=== PATIENT | female | born 1950 | race Caucasian/White ===

== ENCOUNTER 2018-04-11 03:56 | Emergency (ER) | payer MEDICARE, OTHER ==
[~2018-04-11] VITALS: Ht 160 cm; Wt 56.7 kg
[~2018-04-11 03:56] MED LIST: ALBU3IS INH; ALBU90OI INH; ALBU90OI6 INH; Bactrim Ds Tab1 EACH PO; CEPH500 PO; Flovent Diskus50 MCG UD; METO50 PO; Mucinex600 MG PO; Norco 10-325 T1 EACH PO; PROP10 PO; Prednisone20 MG PO; QVAR7.3 G1 IH; SIMV10 PO; SIMV5 PO; THEO300ERA PO; Zithromax250 MG PO; Zofran Odt4 MG SL
[2018-04-11 04:51] LABS: BASOPHILS ABSOLUTE AUTO 0.11 K/mm3 (0.00-0.23); BASOPHILS PERCENT AUTO 1 % (0-2); EOSINOPHILS PERCENT AUTO 2 % (0-6); Hematocrit 46.9 % (33.0-51.0); Hemoglobin 15.3 g/dL (11.5-16.0); IMMATURE GRAN ABSOLUTE AUTO 0.02 K/mm3 (0.00-0.10); IMMATURE GRAN PERCENT AUTO 0 % (0-1); LYMPHOCYTES PERCENT AUTO 28 % (21-46); MONOCYTES ABSOLUTE AUTO 0.69 K/mm3 (0.16-1.47); MONOCYTES PERCENT AUTO 8 % (4-13); Mean Corpuscular HGB 31.4 pg (26.0-34.0); Mean Corpuscular HGB Conc 32.6 g/dL (31.5-36.5); Mean Corpuscular Volume 96 fL (80-100); Mean Platelet Volume 9.2 fL (9.1-12.4); NEUTROPHILS ABSOLUTE AUTO 5.02 K/mm3 (1.96-9.15); NEUTROPHILS PERCENT AUTO 60 % (41-73); Platelet Count 337 K/mm3 (150-400); RDW Coefficient Variation 13.2 % (11.7-14.2); RDW Standard Deviation 47.5 fL (35.1-46.3); Red Blood Cell Count 4.87 M/mm3 (3.80-5.20); White Blood Cell Count 8.44 K/mm3 (4.00-11.30)
[2018-04-11 05:05] LABS: Alanine Aminotransfer (ALT/SGP 17 U/L (12-78); Albumin, Blood 3.5 g/dL (3.4-5.0); Albumin/Globulin Ratio 0.9 (0.8-1.8); Alk Phos 80 U/L (50-136); Anion Gap 8 mmol/L (6-16); Aspartate Aminotrans (AST/SGOT 20 U/L (12-37); Bilirubin, Total 0.3 mg/dL (0.1-1.0); Blood Urea Nitrogen 20 mg/dL (8-24); Bun/Creatinine Ratio 29.6 (12.0-20.0); CO2, Blood 26 mmol/L (21-32); Calcium, Blood 8.9 mg/dL (8.5-10.1); Chloride, Blood 110 mmol/L (98-108); Creatinine, Blood 0.68 mg/dL (0.40-1.00); Globulin, Blood 3.9 g/dL (2.2-4.0); Glomerular Filtration Rate >60 (60-); Glucose, Blood 108 mg/dL (70-99); Potassium, Blood 4.7 mmol/L (3.5-5.5); Sodium, Blood 144 mmol/L (136-145); Total Protein, Blood 7.4 g/dL (6.4-8.2); Troponin I <0.015 ng/mL (0.000-0.040)
[2018-04-11] MEDS ORDERED: Prednisone20 MG PO (06:13)
== END 2018-04-11 06:28 | disposition home or self-care (01) ==
LOC: ER 03:56
PROVIDERS: Emergency Medicine
DX: J44.1 Chronic obstructive pulmonary disease with (acute) exacerbation (principal); F17.210 Nicotine dependence, cigarettes, uncomplicated; Z88.5 Allergy status to narcotic agent; Z79.899 Other long term (current) drug therapy; Z79.52 Long term (current) use of systemic steroids
CPT/HCPCS: 71046; 80053; 84484; 85025; 93005; 93010; 94644; 96374; 99284; J2930

== ENCOUNTER → 2018-06-15 | Outpatient (CLI) | payer MEDICARE, OTHER ==
[~2018-06-15] MED LIST changes: +Prednisone50 MG PO
[2018-06-21 09:11] LABS: HPV 16 Negative (Negative); HPV 18 Negative (Negative); HPV OTHER HR TYPES Negative (Negative)
== END | disposition home or self-care (01) ==
LOC: LAB 14:58 → LAB SHORT 14:58
PROVIDERS: Obstetrics & Gynecology
DX: Z09 Encounter for follow-up examination after completed treatment for conditions other than malignant neoplasm (principal); Z92.89 Personal history of other medical treatment; Z91.89 Other specified personal risk factors, not elsewhere classified
CPT/HCPCS: 87624; 88142

== ENCOUNTER 2018-07-19 03:04 | Emergency (ER) | payer MEDICARE, OTHER ==
[~2018-07-19] VITALS: Ht 172.7 cm; Wt 74.8 kg
[2018-07-19 03:19] LABS: BASOPHILS ABSOLUTE AUTO 0.13 K/mm3 (0.00-0.23); BASOPHILS PERCENT AUTO 1 % (0-2); EOSINOPHILS ABSOLUTE AUTO 0.19 K/mm3 (0.00-0.68); EOSINOPHILS PERCENT AUTO 2 % (0-6); Hematocrit 48.9 % (33.0-51.0); Hemoglobin 15.7 g/dL (11.5-16.0); IMMATURE GRAN ABSOLUTE AUTO 0.03 K/mm3 (0.00-0.10); IMMATURE GRAN PERCENT AUTO 0 % (0-1); LYMPHOCYTES ABSOLUTE AUTO 3.95 K/mm3 (0.84-5.20); LYMPHOCYTES PERCENT AUTO 36 % (21-46); MONOCYTES ABSOLUTE AUTO 0.81 K/mm3 (0.16-1.47); MONOCYTES PERCENT AUTO 7 % (4-13); Mean Corpuscular HGB 30.9 pg (26.0-34.0); Mean Corpuscular HGB Conc 32.1 g/dL (31.5-36.5); Mean Corpuscular Volume 96 fL (80-100); Mean Platelet Volume 8.8 fL (9.1-12.4); NEUTROPHILS ABSOLUTE AUTO 5.97 K/mm3 (1.96-9.15); NEUTROPHILS PERCENT AUTO 54 % (41-73); Platelet Count 477 K/mm3 (150-400); RDW Coefficient Variation 12.3 % (11.7-14.2); RDW Standard Deviation 44.1 fL (35.1-46.3); Red Blood Cell Count 5.08 M/mm3 (3.80-5.20); White Blood Cell Count 11.08 K/mm3 (4.00-11.30)
[2018-07-19 03:23] LABS: PCO2 Arterial 50.3 mmHg (35-45); PO2 Arterial 57.5 mmHg (80-100); pH Blood Arterial 7.38 (7.35-7.45)
[2018-07-19 03:41] LABS: Alanine Aminotransfer (ALT/SGP 12 U/L (12-78); Albumin, Blood 3.5 g/dL (3.4-5.0); Albumin/Globulin Ratio 0.8 (0.8-1.8); Alk Phos 80 U/L (50-136); Anion Gap 4 mmol/L (6-16); Aspartate Aminotrans (AST/SGOT 13 U/L (12-37); Bilirubin, Total 0.4 mg/dL (0.1-1.0); Blood Urea Nitrogen 12 mg/dL (8-24); Bun/Creatinine Ratio 19.7 (12.0-20.0); CO2, Blood 30 mmol/L (21-32); Calcium, Blood 9.3 mg/dL (8.5-10.1); Chloride, Blood 106 mmol/L (98-108); Creatinine, Blood 0.61 mg/dL (0.40-1.00); Globulin, Blood 4.2 g/dL (2.2-4.0); Glomerular Filtration Rate >60 (60-); Glucose, Blood 125 mg/dL (70-99); Potassium, Blood 4.6 mmol/L (3.5-5.5); Sodium, Blood 140 mmol/L (136-145); Total Protein, Blood 7.7 g/dL (6.4-8.2); Troponin I <0.015 ng/mL (0.000-0.040)
[2018-07-19] MEDS ORDERED: Prednisone20 MG PO (04:12)
== END 2018-07-19 05:10 | disposition home or self-care (01) ==
LOC: ER 03:04
PROVIDERS: Emergency Medicine
DX: J44.1 Chronic obstructive pulmonary disease with (acute) exacerbation (principal); Z88.5 Allergy status to narcotic agent; Z79.899 Other long term (current) drug therapy; Z79.51 Long term (current) use of inhaled steroids; Z79.52 Long term (current) use of systemic steroids; Z87.891 Personal history of nicotine dependence
CPT/HCPCS: 36415; 36600; 71045; 80053; 82803; 84484; 85025; 93005; 93010; 94644; 96365; 96375; 99285-25; J2405; J3475

== ENCOUNTER 2018-10-18 17:40 | Emergency (ER) | payer MEDICARE, OTHER ==
[~2018-10-18] VITALS: Ht 157.5 cm; Wt 65.8 kg
[2018-10-18] MEDS ORDERED: METOPROLOL TART75 MG PO (18:14)
[2018-10-18 18:15] LABS: BASOPHILS ABSOLUTE AUTO 0.07 K/mm3 (0.00-0.23); BASOPHILS PERCENT AUTO 1 % (0-2); EOSINOPHILS ABSOLUTE AUTO 0.19 K/mm3 (0.00-0.68); EOSINOPHILS PERCENT AUTO 3 % (0-6); Hematocrit 42.5 % (33.0-51.0); Hemoglobin 13.6 g/dL (11.5-16.0); IMMATURE GRAN ABSOLUTE AUTO 0.02 K/mm3 (0.00-0.10); IMMATURE GRAN PERCENT AUTO 0 % (0-1); LYMPHOCYTES ABSOLUTE AUTO 2.47 K/mm3 (0.84-5.20); LYMPHOCYTES PERCENT AUTO 32 % (21-46); MONOCYTES ABSOLUTE AUTO 0.55 K/mm3 (0.16-1.47); MONOCYTES PERCENT AUTO 7 % (4-13); Mean Corpuscular HGB 30.4 pg (26.0-34.0); Mean Corpuscular Volume 95 fL (80-100); NEUTROPHILS ABSOLUTE AUTO 4.37 K/mm3 (1.96-9.15); NEUTROPHILS PERCENT AUTO 57 % (41-73); Platelet Count 280 K/mm3 (150-400); RDW Coefficient Variation 12.6 % (11.7-14.2); RDW Standard Deviation 44.5 fL (35.1-46.3); Red Blood Cell Count 4.47 M/mm3 (3.80-5.20); White Blood Cell Count 7.67 K/mm3 (4.00-11.30)
[2018-10-18 18:36] LABS: Alanine Aminotransfer (ALT/SGP 12 U/L (12-78); Albumin, Blood 3.3 g/dL (3.4-5.0); Albumin/Globulin Ratio 0.9 (0.8-1.8); Alk Phos 62 U/L (50-136); Anion Gap 7 mmol/L (6-16); Aspartate Aminotrans (AST/SGOT 10 U/L (12-37); Bilirubin, Total 0.2 mg/dL (0.1-1.0); Blood Urea Nitrogen 25 mg/dL (8-24); Bun/Creatinine Ratio 41.6 (12.0-20.0); CO2, Blood 26 mmol/L (21-32); Calcium, Blood 9.4 mg/dL (8.5-10.1); Chloride, Blood 107 mmol/L (98-108); Globulin, Blood 3.6 g/dL (2.2-4.0); Glomerular Filtration Rate >60 (60-); Glucose, Blood 91 mg/dL (70-99); Sodium, Blood 140 mmol/L (136-145); Total Protein, Blood 6.9 g/dL (6.4-8.2); Troponin I <0.015 ng/mL (0.000-0.040)
[2018-10-18] MEDS ORDERED: PRED10 PO (18:58)
[2018-10-18] MEDS ORDERED: AZIT250 PO (18:58)
== END 2018-10-18 19:26 | disposition home or self-care (01) ==
LOC: ER 17:40
PROVIDERS: Emergency Medicine
DX: J44.1 Chronic obstructive pulmonary disease with (acute) exacerbation (principal); I47.1 Supraventricular tachycardia; Z87.891 Personal history of nicotine dependence
CPT/HCPCS: 36415; 71046; 80053; 84484; 85025; 93005; 93010; 94640; 96374; 99284-25; J2930

== ENCOUNTER 2019-11-13 21:59 | Emergency (ER) | payer MEDICARE, OTHER ==
[~2019-11-13] VITALS: Ht 160 cm; Wt 68.0 kg
[~2019-11-13 21:59] MED LIST changes: +AZIT250 PO; +METOPROLOL TART75 MG PO; +PRED10 PO
[2019-11-13] MEDS ORDERED: INCRUSE ELLI62.5 MCG (22:19)
[2019-11-13] MEDS ORDERED: BRIO (22:19)
[2019-11-13 22:47] LABS: BASOPHILS ABSOLUTE AUTO 0.05 K/mm3 (0.00-0.23); BASOPHILS PERCENT AUTO 1 % (0-2); EOSINOPHILS ABSOLUTE AUTO 0.15 K/mm3 (0.00-0.68); EOSINOPHILS PERCENT AUTO 2 % (0-6); Hematocrit 42.2 % (33.0-51.0); Hemoglobin 13.4 g/dL (11.5-16.0); IMMATURE GRAN ABSOLUTE AUTO 0.03 K/mm3 (0.00-0.10); IMMATURE GRAN PERCENT AUTO 0 % (0-1); LYMPHOCYTES ABSOLUTE AUTO 2.42 K/mm3 (0.84-5.20); LYMPHOCYTES PERCENT AUTO 29 % (21-46); MONOCYTES ABSOLUTE AUTO 0.78 K/mm3 (0.16-1.47); MONOCYTES PERCENT AUTO 9 % (4-13); Mean Corpuscular HGB 30.5 pg (26.0-34.0); Mean Corpuscular HGB Conc 31.8 g/dL (31.5-36.5); Mean Corpuscular Volume 96 fL (80-100); Mean Platelet Volume 9.5 fL (9.1-12.4); NEUTROPHILS ABSOLUTE AUTO 4.93 K/mm3 (1.96-9.15); NEUTROPHILS PERCENT AUTO 59 % (41-73); Platelet Count 295 K/mm3 (150-400); RDW Coefficient Variation 12.7 % (11.7-14.2); RDW Standard Deviation 45.3 fL (35.1-46.3); White Blood Cell Count 8.36 K/mm3 (4.00-11.30)
[2019-11-13 23:06] LABS: Alanine Aminotransfer (ALT/SGP 12 U/L (12-78); Albumin, Blood 3.5 g/dL (3.4-5.0); Alk Phos 57 U/L (50-136); Anion Gap 6 mmol/L (6-16); Aspartate Aminotrans (AST/SGOT 13 U/L (12-37); Bilirubin, Total 0.2 mg/dL (0.1-1.0); Blood Urea Nitrogen 18 mg/dL (8-24); Bun/Creatinine Ratio 35.2 (12.0-20.0); CO2, Blood 30 mmol/L (21-32); Calcium, Blood 9.6 mg/dL (8.5-10.1); Chloride, Blood 108 mmol/L (98-108); Creatinine, Blood 0.51 mg/dL (0.40-1.00); Globulin, Blood 3.5 g/dL (2.2-4.0); Glomerular Filtration Rate >60 (60-); Glucose, Blood 95 mg/dL (70-99); Potassium, Blood 3.9 mmol/L (3.5-5.5); Sodium, Blood 144 mmol/L (136-145); Troponin I <0.015 ng/mL (0.000-0.040)
[2019-11-14 00:26] LABS: PCO2 Arterial 47.9 mmHg (35-45); PO2 Arterial 70.7 mmHg (80-100); pH Blood Arterial 7.37 (7.35-7.45)
== END 2019-11-14 02:30 | disposition home or self-care (01) ==
LOC: ER 21:59
PROVIDERS: Emergency Medicine; Physician Assistant
DX: J44.1 Chronic obstructive pulmonary disease with (acute) exacerbation (principal); Z88.5 Allergy status to narcotic agent; Z79.899 Other long term (current) drug therapy; J44.9 Chronic obstructive pulmonary disease, unspecified; Z87.891 Personal history of nicotine dependence
CPT/HCPCS: 36415; 36600; 71046; 80053; 82803; 83880; 84484; 85025; 93005; 93010; 94640; 94644; 96361; 96374; 96375; 99284-25; J1885; J2930; J7030

== ENCOUNTER → 2020-06-18 | Outpatient (CLI) | payer MEDICARE, OTHER ==
[~2020-06-18] MED LIST changes: +BRIO; +INCRUSE ELLI62.5 MCG
[2020-06-19 14:08] LABS: HPV 16 Negative (Negative); HPV 18 Negative (Negative); HPV OTHER HR TYPES Negative (Negative)
== END | disposition home or self-care (01) ==
LOC: LAB 12:15 → LAB SHORT 12:15
PROVIDERS: Obstetrics & Gynecology
DX: Z01.419 Encounter for gynecological examination (general) (routine) without abnormal findings (principal)
CPT/HCPCS: 87624; G0123

== ENCOUNTER → 2021-01-15 | Outpatient (CLI) | payer MEDICARE, OTHER ==
[2021-01-15 18:44] LABS: Bilirubin, Urine Neg (Neg); Blood, Urine 1+ (Neg); Glucose Qualitative, Urine Neg (Neg); Ketones, Urine 1+ (Neg); Leukocyte Esterase, Urine 1+ (Neg); Nitrite, Urine Neg (Neg); Protein, Urine Neg (Neg); Urobilinogen, Urine NORM (Normal)
[2021-01-15 18:52] LABS: Appearance, Urine Clear (Clear); Color, Urine Pale Yellow (P-Yellow)
[2021-01-15 18:53] LABS: Red Blood Cells, Urine 0-2 /hpf (0-2); Squamous Epithelial Cells Few /hpf (Few)
[2021-01-15 18:54] LABS: Bacteria Few /hpf
== END ==
LOC: PLD 17:28 → LAB SHORT 17:28
PROVIDERS: Registered Nurse
DX: R10.9 Unspecified abdominal pain (principal); Z88.5 Allergy status to narcotic agent
CPT/HCPCS: 81001; 87086

== ENCOUNTER 2021-04-13 20:58 | Emergency (ER) | payer MEDICARE, OTHER ==
[~2021-04-13] VITALS: Ht 160 cm; Wt 72.6 kg
[2021-04-13 21:23] LABS: BASOPHILS ABSOLUTE AUTO 0.06 K/mm3 (0.00-0.23); BASOPHILS PERCENT AUTO 1 % (0-2); EOSINOPHILS ABSOLUTE AUTO 0.14 K/mm3 (0.00-0.68); EOSINOPHILS PERCENT AUTO 2 % (0-6); Hematocrit 45.6 % (33.0-51.0); Hemoglobin 14.8 g/dL (11.5-16.0); IMMATURE GRAN ABSOLUTE AUTO 0.02 K/mm3 (0.00-0.10); IMMATURE GRAN PERCENT AUTO 0 % (0-1); LYMPHOCYTES ABSOLUTE AUTO 2.84 K/mm3 (0.84-5.20); LYMPHOCYTES PERCENT AUTO 34 % (21-46); MONOCYTES ABSOLUTE AUTO 0.74 K/mm3 (0.16-1.47); MONOCYTES PERCENT AUTO 9 % (4-13); Mean Corpuscular HGB 29.8 pg (26.0-34.0); Mean Corpuscular HGB Conc 32.5 g/dL (31.5-36.5); Mean Corpuscular Volume 92 fL (80-100); Mean Platelet Volume 9.6 fL (9.1-12.4); NEUTROPHILS ABSOLUTE AUTO 4.53 K/mm3 (1.96-9.15); NEUTROPHILS PERCENT AUTO 54 % (41-73); Platelet Count 347 K/mm3 (150-400); RDW Coefficient Variation 12.7 % (11.7-14.2); Red Blood Cell Count 4.96 M/mm3 (3.80-5.20); White Blood Cell Count 8.33 K/mm3 (4.00-11.30)
[2021-04-13 22:07] LABS: Alanine Aminotransfer (ALT/SGP 16 U/L (12-78); Albumin, Blood 3.6 g/dL (3.4-5.0); Albumin/Globulin Ratio 0.9 (0.8-1.8); Alk Phos 70 U/L (50-136); Anion Gap 6 mmol/L (6-16); Aspartate Aminotrans (AST/SGOT 18 U/L (12-37); Bilirubin, Total 0.3 mg/dL (0.1-1.0); Blood Urea Nitrogen 23 mg/dL (8-24); CO2, Blood 28 mmol/L (21-32); Calcium, Blood 9.6 mg/dL (8.5-10.1); Chloride, Blood 107 mmol/L (98-108); Creatinine, Blood 0.66 mg/dL (0.40-1.00); Globulin, Blood 4.1 g/dL (2.2-4.0); Glomerular Filtration Rate >60 (60-); Glucose, Blood 115 mg/dL (70-99); Magnesium, Blood 2.2 mg/dL (1.6-2.4); Potassium, Blood 4.1 mmol/L (3.5-5.5); Sodium, Blood 141 mmol/L (136-145); Total Protein, Blood 7.7 g/dL (6.4-8.2); Troponin I <0.015 ng/mL (0.000-0.040)
== END 2021-04-13 23:08 | disposition home or self-care (01) ==
LOC: ER 20:58
PROVIDERS: Emergency Medicine
DX: I47.1 Supraventricular tachycardia (principal); J44.9 Chronic obstructive pulmonary disease, unspecified; Z79.899 Other long term (current) drug therapy
CPT/HCPCS: 71045; 80053; 83735; 83880; 84484; 85025; 93005; 93010; 96374; 96375; 99285-25; J0153; J7030

== ENCOUNTER 2022-10-16 12:39 | Emergency (ER) | payer MEDICARE, OTHER ==
[~2022-10-16] VITALS: Ht 157.5 cm; Wt 72.6 kg
[~2022-10-16 12:39] MED LIST changes: -SIMV10 PO; +Zocor20 MG PO
[2022-10-16 13:17] LABS: BASOPHILS ABSOLUTE AUTO 0.03 K/mm3 (0.00-0.23); BASOPHILS PERCENT AUTO 0 % (0-2); EOSINOPHILS ABSOLUTE AUTO 0.16 K/mm3 (0.00-0.68); EOSINOPHILS PERCENT AUTO 1 % (0-6); Hematocrit 43.1 % (33.0-51.0); Hemoglobin 13.8 g/dL (11.5-16.0); IMMATURE GRAN ABSOLUTE AUTO 0.04 K/mm3 (0.00-0.10); IMMATURE GRAN PERCENT AUTO 0 % (0-1); LYMPHOCYTES ABSOLUTE AUTO 2.19 K/mm3 (0.84-5.20); LYMPHOCYTES PERCENT AUTO 20 % (21-46); MONOCYTES PERCENT AUTO 8 % (4-13); Mean Corpuscular HGB 29.6 pg (26.0-34.0); Mean Corpuscular Volume 92 fL (80-100); Mean Platelet Volume 9.2 fL (9.1-12.4); NEUTROPHILS ABSOLUTE AUTO 7.85 K/mm3 (1.96-9.15); NEUTROPHILS PERCENT AUTO 70 % (41-73); Platelet Count 277 K/mm3 (150-400); RDW Coefficient Variation 12.6 % (11.7-14.2); RDW Standard Deviation 42.8 fL (35.1-46.3); Red Blood Cell Count 4.67 M/mm3 (3.80-5.20); White Blood Cell Count 11.17 K/mm3 (4.00-11.30)
[2022-10-16 13:27] LABS: Base Excess Venous 8.6 mmol/L; Bicarbonate Venous 31.6 mmol/L (24.0-30.0); PCO2 Venous 42.1 mmHg (38-42); pH Blood Venous 7.49 (7.34-7.37)
[2022-10-16 13:56] LABS: Albumin, Blood 3.1 g/dL (3.4-5.0); Albumin/Globulin Ratio 0.8 (0.8-1.8); Bilirubin, Total 0.4 mg/dL (0.1-1.0); Bun/Creatinine Ratio 34.5 (12.0-20.0); Calcium, Blood 8.9 mg/dL (8.5-10.1); Creatinine, Blood 0.44 mg/dL (0.40-1.00); Globulin, Blood 3.7 g/dL (2.2-4.0); Potassium, Blood 4.1 mmol/L (3.5-5.5); Total Protein, Blood 6.8 g/dL (6.4-8.2)
[2022-10-16] MEDS ORDERED: MULVITA PO (15:51)
[2022-10-16] MEDS ORDERED: TRELEGY ELLIPT1 EACH INH (15:52)
[2022-10-16 16:48] LABS: Influenza A, PCR NEGATIVE (NEGATIVE); Influenza B, PCR NEGATIVE (NEGATIVE); Resp Syncytial Virus, PCR NEGATIVE (NEGATIVE); SARS-Cov-2 (COVID-19) PCR, MMC NEGATIVE (NEGATIVE)
[2022-10-16] MEDS ORDERED: DOXY100 PO (17:39)
== END 2022-10-16 17:48 | disposition home or self-care (01) ==
LOC: ER 12:39
PROVIDERS: Emergency Medicine; Physician Assistant
DX: J44.1 Chronic obstructive pulmonary disease with (acute) exacerbation (principal); Z79.899 Other long term (current) drug therapy; Z87.891 Personal history of nicotine dependence; Z20.822 Contact with and (suspected) exposure to COVID-19; Z88.5 Allergy status to narcotic agent
CPT/HCPCS: 0241U; 36415; 71046; 80053; 82803; 83880; 84484; 85025; 93005; 93010; 94640; 94664; 96374; 99284-25; A9270; J1100

== ENCOUNTER 2023-11-09 10:33 | Emergency (ER) | payer MEDICARE, OTHER ==
[~2023-11-09] VITALS: Ht 160 cm; Wt 74.8 kg
[~2023-11-09 10:33] MED LIST changes: +DOXY100 PO; +MULVITA PO; +TRELEGY ELLIPT1 EACH INH
[2023-11-09 11:04] LABS: BASOPHILS ABSOLUTE AUTO 0.05 K/mm3 (0.00-0.23); BASOPHILS PERCENT AUTO 1 % (0-2); EOSINOPHILS ABSOLUTE AUTO 0.14 K/mm3 (0.00-0.68); EOSINOPHILS PERCENT AUTO 2 % (0-6); Hematocrit 42.6 % (33.0-51.0); Hemoglobin 13.1 g/dL (11.5-16.0); IMMATURE GRAN ABSOLUTE AUTO 0.01 K/mm3 (0.00-0.10); IMMATURE GRAN PERCENT AUTO 0 % (0-1); LYMPHOCYTES ABSOLUTE AUTO 1.17 K/mm3 (0.84-5.20); LYMPHOCYTES PERCENT AUTO 20 % (21-46); MONOCYTES ABSOLUTE AUTO 0.54 K/mm3 (0.16-1.47); MONOCYTES PERCENT AUTO 9 % (4-13); Mean Corpuscular HGB 28.9 pg (26.0-34.0); Mean Corpuscular HGB Conc 30.8 g/dL (31.5-36.5); Mean Corpuscular Volume 94 fL (80-100); NEUTROPHILS ABSOLUTE AUTO 3.84 K/mm3 (1.96-9.15); NEUTROPHILS PERCENT AUTO 67 % (41-73); Platelet Count 258 K/mm3 (150-400); RDW Coefficient Variation 12.7 % (11.7-14.2); RDW Standard Deviation 44.3 fL (35.1-46.3); Red Blood Cell Count 4.53 M/mm3 (3.80-5.20); White Blood Cell Count 5.75 K/mm3 (4.00-11.30)
[2023-11-09 11:25] LABS: Albumin, Blood 3.3 g/dL (3.4-5.0); Albumin/Globulin Ratio 0.9 (0.8-1.8); Bilirubin, Total 0.6 mg/dL (0.1-1.0); Bun/Creatinine Ratio 36.4 (12.0-20.0); Calcium, Blood 9.3 mg/dL (8.5-10.1); Creatinine, Blood 0.55 mg/dL (0.40-1.00); Globulin, Blood 3.8 g/dL (2.2-4.0); Total Protein, Blood 7.1 g/dL (6.4-8.2)
[2023-11-09 12:07] LABS: Influenza A Negative (NEGATIVE); Influenza B Negative (NEGATIVE)
[2023-11-09] MEDS ORDERED: PRED20 PO (12:18)
[2023-11-09 12:20] LABS: SARS-Cov-2 (COVID-19) PCR, MMC POSITIVE (NEGATIVE)
[2023-11-09 12:50] VITALS: BP 138/88
== END 2023-11-09 13:06 | disposition home or self-care (01) ==
LOC: ER 10:33
PROVIDERS: Physician Assistant
DX: U07.1 COVID-19 (principal); B97.4 Respiratory syncytial virus as the cause of diseases classified elsewhere; J44.9 Chronic obstructive pulmonary disease, unspecified; I47.10 Supraventricular tachycardia, unspecified; Z88.5 Allergy status to narcotic agent; Z79.51 Long term (current) use of inhaled steroids; Z79.899 Other long term (current) drug therapy; Z99.81 Dependence on supplemental oxygen; Z87.891 Personal history of nicotine dependence
CPT/HCPCS: 71046; 80053; 83880; 85025; 87804; 87807; 93005; 93010; 94640; 94664; 99285-25; J7512; U0002

== ENCOUNTER 2023-11-22 07:53 | Emergency (ER) | payer MEDICARE, OTHER ==
[~2023-11-22] VITALS: Ht 157.5 cm; Wt 74.8 kg
[~2023-11-22 07:53] MED LIST changes: -ALBU3IS INH; +METO25 PO; -METOPROLOL TART75 MG PO; +PRED20 PO
[2023-11-22] MEDS ORDERED: Diltiazem HCl 5 MG / ML 5ML Vial IV ONE (08:40)
[2023-11-22 08:43] LABS: BASOPHILS ABSOLUTE AUTO 0.05 K/mm3 (0.00-0.23); BASOPHILS PERCENT AUTO 1 % (0-2); EOSINOPHILS ABSOLUTE AUTO 0.19 K/mm3 (0.00-0.68); EOSINOPHILS PERCENT AUTO 2 % (0-6); Hemoglobin 14.6 g/dL (11.5-16.0); IMMATURE GRAN ABSOLUTE AUTO 0.03 K/mm3 (0.00-0.10); IMMATURE GRAN PERCENT AUTO 0 % (0-1); LYMPHOCYTES ABSOLUTE AUTO 1.74 K/mm3 (0.84-5.20); LYMPHOCYTES PERCENT AUTO 20 % (21-46); MONOCYTES ABSOLUTE AUTO 0.58 K/mm3 (0.16-1.47); MONOCYTES PERCENT AUTO 7 % (4-13); Mean Corpuscular HGB 28.9 pg (26.0-34.0); Mean Corpuscular HGB Conc 31.1 g/dL (31.5-36.5); Mean Corpuscular Volume 93 fL (80-100); NEUTROPHILS ABSOLUTE AUTO 5.93 K/mm3 (1.96-9.15); NEUTROPHILS PERCENT AUTO 70 % (41-73); Platelet Count 346 K/mm3 (150-400); RDW Coefficient Variation 12.7 % (11.7-14.2); RDW Standard Deviation 43.5 fL (35.1-46.3); Red Blood Cell Count 5.05 M/mm3 (3.80-5.20); White Blood Cell Count 8.52 K/mm3 (4.00-11.30)
[2023-11-22 09:12] LABS: Thyroid Stimulating Hormone 0.598 uIU/mL (0.360-4.800)
[2023-11-22 09:20] LABS: Alanine Aminotransfer (ALT/SGP 16 U/L (12-78); Albumin, Blood 3.3 g/dL (3.4-5.0); Albumin/Globulin Ratio 0.8 (0.8-1.8); Alk Phos 76 U/L (50-136); Anion Gap Unable to Calculate mmol/L (6-16); Aspartate Aminotrans (AST/SGOT 15 U/L (12-37); Bilirubin, Total 0.3 mg/dL (0.1-1.0); Blood Urea Nitrogen 13 mg/dL (8-24); Bun/Creatinine Ratio 23.4 (12.0-20.0); CO2, Blood 35 mmol/L (21-32); Calcium, Blood 9.8 mg/dL (8.5-10.1); Chloride, Blood 106 mmol/L (98-108); Creatinine, Blood 0.56 mg/dL (0.40-1.00); Globulin, Blood 4.3 g/dL (2.2-4.0); Glomerular Filtration Rate 95 (60-); Glucose, Blood 127 mg/dL (70-99); Potassium, Blood 4.1 mmol/L (3.5-5.5); Sodium, Blood 140 mmol/L (136-145); Total Protein, Blood 7.6 g/dL (6.4-8.2)
[2023-11-22 12:00] VITALS: BP 116/64
[2023-11-23] MEDS ORDERED: DULERA 100 MCG/13 GM (13:18)
== END 2023-11-22 12:40 | disposition home or self-care (01) ==
LOC: ER 07:53
PROVIDERS: Emergency Medicine
DX: R00.0 Tachycardia, unspecified (principal); I45.9 Conduction disorder, unspecified; I44.7 Left bundle-branch block, unspecified; J44.89 Other specified chronic obstructive pulmonary disease; Z87.891 Personal history of nicotine dependence; Z79.51 Long term (current) use of inhaled steroids; Z79.52 Long term (current) use of systemic steroids; Z79.899 Other long term (current) drug therapy; Z88.5 Allergy status to narcotic agent
CPT/HCPCS: 71046; 71260; 80053; 83880; 84443; 84484; 85025; 85379; 93005; 93010; 96374-59; 99285-25; Q9967

== ENCOUNTER 2023-11-23 04:39 | Observation (INO) | payer MEDICARE, OTHER ==
[~2023-11-23] VITALS: Ht 160 cm; Wt 78.1 kg
[2023-11-23] MEDS ORDERED: Aspirin 325 MG Tab PO ONE (09:10)
[2023-11-23] MEDS ORDERED: FLU VACC QS2023-24(6MOS UP)/PF 60 MCG/0.5 ML SYRINGE IM SCH (09:55)
[2023-11-23] MEDS ORDERED: Adenosine 3 MG/ML 2 ML Vial ONE ×2 (10:51→10:58)
[2023-11-23] MEDS ORDERED: Diltiazem HCl 5 MG / ML 5ML Vial IV ONE (11:05)
[2023-11-23] MEDS ORDERED: Lactated Ringer's 1,000 ML IV ONE (11:05)
[2023-11-23] MEDS ORDERED: Adenosine 3 MG/ML 2 ML Vial IV ONE ×2 (11:20)
[2023-11-23 11:43] LABS: Albumin/Globulin Ratio 0.8 (0.8-1.8); Bilirubin, Total 0.3 mg/dL (0.1-1.0); Bun/Creatinine Ratio 27.3 (12.0-20.0); Calcium, Blood 8.9 mg/dL (8.5-10.1); Creatinine, Blood 0.51 mg/dL (0.40-1.00); Globulin, Blood 3.7 g/dL (2.2-4.0); Potassium, Blood 3.8 mmol/L (3.5-5.5); Total Protein, Blood 6.7 g/dL (6.4-8.2)
[2023-11-23] MEDS ORDERED: Albuterol HFA200 ACT/6.7 GM INH INH PRN (12:20)
[2023-11-23] MEDS ORDERED: Mometasone/Formoterol MDI 100/5 mcg 13 GM INH SCH (12:20)
[2023-11-23] MEDS ORDERED: Ipratropium Bromide INH 0.02% 0.5 mg/2.5ML Vial INH SCH (12:20)
[2023-11-23 12:24] LABS: BASOPHILS ABSOLUTE AUTO 0.03 K/mm3 (0.00-0.23); BASOPHILS PERCENT AUTO 1 % (0-2); EOSINOPHILS ABSOLUTE AUTO 0.06 K/mm3 (0.00-0.68); EOSINOPHILS PERCENT AUTO 1 % (0-6); Hematocrit 37.6 % (33.0-51.0); IMMATURE GRAN ABSOLUTE AUTO 0.02 K/mm3 (0.00-0.10); IMMATURE GRAN PERCENT AUTO 0 % (0-1); LYMPHOCYTES ABSOLUTE AUTO 1.34 K/mm3 (0.84-5.20); LYMPHOCYTES PERCENT AUTO 20 % (21-46); MONOCYTES ABSOLUTE AUTO 0.47 K/mm3 (0.16-1.47); MONOCYTES PERCENT AUTO 7 % (4-13); Mean Corpuscular HGB 29.6 pg (26.0-34.0); Mean Corpuscular HGB Conc 31.9 g/dL (31.5-36.5); Mean Corpuscular Volume 93 fL (80-100); Mean Platelet Volume 9.1 fL (9.1-12.4); NEUTROPHILS ABSOLUTE AUTO 4.72 K/mm3 (1.96-9.15); NEUTROPHILS PERCENT AUTO 71 % (41-73); Platelet Count 263 K/mm3 (150-400); RDW Coefficient Variation 12.8 % (11.7-14.2); RDW Standard Deviation 43.6 fL (35.1-46.3); Red Blood Cell Count 4.06 M/mm3 (3.80-5.20); White Blood Cell Count 6.64 K/mm3 (4.00-11.30)
[2023-11-23] MEDS ORDERED: Albuterol 2.5 MG/3 ML VIAL INH SCH (13:00)
[2023-11-23] MEDS ORDERED: Diltiazem HCl 300 MG Cap.CD PO SCH (13:00)
[2023-11-23] MEDS ORDERED: DULERA 100 MCG/13 GM (13:18)
--- NOTE | 2023-11-23 14:19 | NUR ---
pt arrived to PCU and moved by staff with slider sheet from [facility] to the bed. Reported by ED RN that the pt has symptomatic SVT in ED with activity of BSC use. Pt encouraged to stay in bed until oral medications have enough time to absorb and take effect. She was given Cardizem orally after arrival to the unit. Vital signs noted fairly stable. Pt has dyspnea and scattered mild wheezing and diminished lung sounds. She said she gets breathless at baseline with activity. No distress noted, and she is on her baseline O2 of 2 l/min by n.c. No hypotension, heart rate is 102 bpm sinus tachycardia. She was helped out of her street clothing and given a bed bath, fresh linens provided. Pt was oriented to the room and questions answered to both the pt and her granddaughter who is also at the bedside. Pt says Conchita the granddaughter is also her caregiver who lives with her. Pt states she is well looked after and feels very safe at her home.
[2023-11-23 16:17] VITALS: BP 130/69
[2023-11-23] MEDS ORDERED: Albuterol 2.5 MG/3 ML VIAL INH PRN (16:50)
[2023-11-23 18:34] VITALS: BP 141/76
--- NOTE | 2023-11-23 18:40 | NUR ---
Pt reported feeling a fuzzy feeling in her chest. She then said it felt like a very warm feeling, but it went away she said while I was in the room assessing her. Lung sounds and heart sounds remain unchanged from previous assessment. Sinus tachycardia 101 bpm noted by telemetry. seed technician notified, and no changes were noted. Vital signs stable. Pt is lying in bed and said she wondered if perhaps it was the tomato sauce that she took a bite of earlier. Granddaughter Conchita says that the patient has a lot of anxiety.
[2023-11-23 20:30] VITALS: BP 129/68
[2023-11-23] MEDS ORDERED: Metoprolol Tartrate 25 MG Tab PO SCH (21:00)
[2023-11-23] MEDS ORDERED: Atorvastatin 10 MG Tab PO SCH (21:00)
[2023-11-24] VITALS (7 sets, daily range): BP systolic 114–137; BP diastolic 53–81
[2023-11-24 04:33] LABS: Magnesium, Blood 2.3 mg/dL (1.6-2.4)
[2023-11-24 04:53] LABS: Alanine Aminotransfer (ALT/SGP 11 U/L (12-78); Albumin, Blood 2.7 g/dL (3.4-5.0); Albumin/Globulin Ratio 0.8 (0.8-1.8); Alk Phos 60 U/L (50-136); Anion Gap Unable to Calculate mmol/L (6-16); Aspartate Aminotrans (AST/SGOT 17 U/L (12-37); Bilirubin, Total 0.5 mg/dL (0.1-1.0); Blood Urea Nitrogen 12 mg/dL (8-24); Bun/Creatinine Ratio 23.6 (12.0-20.0); CO2, Blood 34 mmol/L (21-32); Calcium, Blood 8.9 mg/dL (8.5-10.1); Chloride, Blood 110 mmol/L (98-108); Creatinine, Blood 0.51 mg/dL (0.40-1.00); Globulin, Blood 3.2 g/dL (2.2-4.0); Glomerular Filtration Rate 97 (60-); Glucose, Blood 104 mg/dL (70-99); Potassium, Blood 4.1 mmol/L (3.5-5.5); Sodium, Blood 143 mmol/L (136-145); Total Protein, Blood 5.9 g/dL (6.4-8.2)
[2023-11-24] MEDS ORDERED: Ondansetron HCl 2 MG / ML 2ML Vial ONE (05:06)
[2023-11-24] MEDS ORDERED: Ondansetron HCl 2 MG / ML 2ML Vial IV PRN (05:10)
--- NOTE | 2023-11-24 06:47 | NUR ---
End of shift note. Pt has rested throughout the shift. No complaints of CP. Pt did report one episode of gas/ without belching which she believed it was significant enough to report. One episode of sudden nausea/vomiting after receiving a PRN neb. Order for PRN Zofran was received. Pt has been OOB once to the BSC to void. Highest HR was 119 while moving but it recovered quickly. Pt did have noted SOB when getting up. HR mostly in the 80s overnight. Pt is able to make needs known, call light is within reach. Granddaughter at bedside.
[2023-11-24] MEDS ORDERED: Enoxaparin 40 MG/0.4 ML SYR SC SCH (09:00)
[2023-11-24] MEDS ORDERED: Multivitamins 1 Tab PO SCH (09:00)
[2023-11-24] MEDS ORDERED: DILTIAZEM 24HR300 MG PO (12:32)
--- NOTE | 2023-11-24 12:56 | NUR ---
Pt up to BSC to void. Heart rate stayed less than 105 bpm, pt states no unusual shortness of breath for her during activity. Spo2 88-89% during activity, quickly recovered to 95%. Pt wearing home dose of 2 l/min of O2 continuously.
[2023-11-24] MEDS ORDERED: Aminophylline 250MG / 10ML 10 ML Vial ONE (14:28)
[2023-11-24] MEDS ORDERED: Regadenoson 0.4 MG/5 ML SYRINGE ONE (14:28)
[2023-11-24] MEDS ORDERED: Acetaminophen 325 MG TABLET PO PRN (15:35)
[2023-11-24] MEDS ORDERED: Melatonin 3 MG Tab PO PRN (16:40)
[2023-11-24] MEDS ORDERED: Promethazine HCl 25 MG Tab PO PRN (16:40)
--- NOTE | 2023-11-24 18:08 | NUR ---
Up to bathroom for BM with granddaughter/caregiver Conchita assisting her. She is dypneic after the activity, heart rhythm sinus tachycardia 115 bpm.
[2023-11-25 00:24] VITALS: BP 107/61
[2023-11-25 03:58] LABS: BASOPHILS ABSOLUTE AUTO 0.03 K/mm3 (0.00-0.23); BASOPHILS PERCENT AUTO 1 % (0-2); EOSINOPHILS ABSOLUTE AUTO 0.14 K/mm3 (0.00-0.68); EOSINOPHILS PERCENT AUTO 3 % (0-6); Hematocrit 35.2 % (33.0-51.0); Hemoglobin 11.1 g/dL (11.5-16.0); IMMATURE GRAN ABSOLUTE AUTO 0.01 K/mm3 (0.00-0.10); IMMATURE GRAN PERCENT AUTO 0 % (0-1); LYMPHOCYTES ABSOLUTE AUTO 1.29 K/mm3 (0.84-5.20); LYMPHOCYTES PERCENT AUTO 24 % (21-46); MONOCYTES ABSOLUTE AUTO 0.49 K/mm3 (0.16-1.47); MONOCYTES PERCENT AUTO 9 % (4-13); Mean Corpuscular HGB 29.6 pg (26.0-34.0); Mean Corpuscular HGB Conc 31.5 g/dL (31.5-36.5); Mean Corpuscular Volume 94 fL (80-100); Mean Platelet Volume 9.5 fL (9.1-12.4); NEUTROPHILS ABSOLUTE AUTO 3.42 K/mm3 (1.96-9.15); NEUTROPHILS PERCENT AUTO 64 % (41-73); Platelet Count 224 K/mm3 (150-400); RDW Coefficient Variation 13.1 % (11.7-14.2); RDW Standard Deviation 45.4 fL (35.1-46.3); Red Blood Cell Count 3.75 M/mm3 (3.80-5.20); White Blood Cell Count 5.38 K/mm3 (4.00-11.30)
[2023-11-25 04:43] LABS: Anion Gap Unable to Calculate mmol/L (6-16); Blood Urea Nitrogen 20 mg/dL (8-24); Bun/Creatinine Ratio 34.8 (12.0-20.0); CO2, Blood 33 mmol/L (21-32); Calcium, Blood 8.9 mg/dL (8.5-10.1); Chloride, Blood 109 mmol/L (98-108); Creatinine, Blood 0.57 mg/dL (0.40-1.00); Glomerular Filtration Rate 95 (60-); Glucose, Blood 111 mg/dL (70-99); Potassium, Blood 4.3 mmol/L (3.5-5.5); Sodium, Blood 141 mmol/L (136-145)
[2023-11-25 04:53] VITALS: BP 104/60
--- NOTE | 2023-11-25 05:53 | NUR ---
SHIFT SUMMARY PATIENT ALERT AND ORIENTED X4. HAD NO COMPLAINTS OF PAIN OR SHORTNESS OF BREATH. IS ON HOME DOSE O2 VIA NASAL CANULA WITH SPO2 94%. VITAL SIGNS STABLE WITH NO EVENTS ON TELE. WILL CONTINUE TO MONITOR. CALL LIGHT WITHIN REACH.
[2023-11-25 07:18] VITALS: BP 126/54
--- NOTE | 2023-11-25 07:20 | NUR ---
Pt had a good night's sleep, she reports. This morning she went to the bathroom wearing her O2 at 2 l/min and had hypoxia to 78% per the CLIENT SERVICE ADMINISTRATOR upon return to her bed. Pt has lingering productive (white to clear mucous) cough since having Covid last month. Will ask hospitalist about possible need for home O2 eval before discharge. Pt also is still wearing a zio patch, possible to continue on discharge. Will confirm with attending MD.
[2023-11-25] MEDS ORDERED: MELA3 PO (11:11)
== END 2023-11-25 12:10 | disposition home or self-care (01) ==
LOC: ER 04:39 → PCU 04:40
PROVIDERS: Emergency Medicine; Family Medicine; ADMIT Hospitalist
DX: I47.10 Supraventricular tachycardia, unspecified (principal); J44.9 Chronic obstructive pulmonary disease, unspecified; Z87.891 Personal history of nicotine dependence; Z88.5 Allergy status to narcotic agent; Z79.899 Other long term (current) drug therapy
CPT/HCPCS: 36415; 78452; 80048; 80053; 83735; 84439; 84484; 85025; 93005; 93010; 93017; 93242; 93306; 94640; 94664; 94761; 94762; 96361; 96372; 96374-59; 96375; 99285-25; A9270; A9500; G0378; J0153; J0280; J1650; J2405; J2785; J7120

== ENCOUNTER 2024-04-23 15:15 | Inpatient (IN) | payer MEDICARE, OTHER ==
[~2024-04-23] VITALS: Ht 157.5 cm; Wt 77.1 kg
[~2024-04-23 15:15] MED LIST changes: +DILTIAZEM 24HR300 MG PO; +DULERA 100 MCG/13 GM; +MELA3 PO
[2024-04-23 17:09] LABS: BASOPHILS ABSOLUTE AUTO 0.04 K/mm3 (0.00-0.23); BASOPHILS PERCENT AUTO 0 % (0-2); EOSINOPHILS ABSOLUTE AUTO 0.03 K/mm3 (0.00-0.68); EOSINOPHILS PERCENT AUTO 0 % (0-6); Hematocrit 42.9 % (33.0-51.0); Hemoglobin 13.4 g/dL (11.5-16.0); IMMATURE GRAN ABSOLUTE AUTO 0.04 K/mm3 (0.00-0.10); IMMATURE GRAN PERCENT AUTO 0 % (0-1); LYMPHOCYTES ABSOLUTE AUTO 0.62 K/mm3 (0.84-5.20); LYMPHOCYTES PERCENT AUTO 5 % (21-46); MONOCYTES ABSOLUTE AUTO 0.59 K/mm3 (0.16-1.47); MONOCYTES PERCENT AUTO 4 % (4-13); Mean Corpuscular HGB 29.1 pg (26.0-34.0); Mean Corpuscular HGB Conc 31.2 g/dL (31.5-36.5); Mean Corpuscular Volume 93 fL (80-100); NEUTROPHILS ABSOLUTE AUTO 12.11 K/mm3 (1.96-9.15); NEUTROPHILS PERCENT AUTO 90 % (41-73); Platelet Count 286 K/mm3 (150-400); RDW Coefficient Variation 12.8 % (11.7-14.2); RDW Standard Deviation 43.8 fL (35.1-46.3); White Blood Cell Count 13.43 K/mm3 (4.00-11.30)
[2024-04-23] MEDS ORDERED: VITAMIN D5000 UNIT PO (17:17)
[2024-04-23] MEDS ORDERED: PRAVASTATIN SOD40 MG PO (17:17)
[2024-04-23] MEDS ORDERED: CITALOPRAM HBR20 M9 PO (17:18)
[2024-04-23] MEDS ORDERED: Hydroxyzine HCl50 MG PO (17:18)
[2024-04-23] MEDS ORDERED: Albuterol 2.5 MG/3 ML VIAL INH SCH (17:20)
[2024-04-23] MEDS ORDERED: Mag Sulfate 1 GM/D5% 100ML 100 ML IV ONE (17:20)
[2024-04-23] MEDS ORDERED: MethylPREDNISolone Sod Succ 125 MG Vial IV ONE (17:20)
[2024-04-23 17:29] LABS: Albumin, Blood 3.6 g/dL (3.4-5.0); Albumin/Globulin Ratio 0.9 (0.8-1.8); Bilirubin, Total 0.2 mg/dL (0.1-1.0); Bun/Creatinine Ratio 31.9 (12.0-20.0); Calcium, Blood 9.1 mg/dL (8.5-10.1); Creatinine, Blood 0.66 mg/dL (0.40-1.00); Globulin, Blood 3.9 g/dL (2.2-4.0); Potassium, Blood 4.1 mmol/L (3.5-5.5); Total Protein, Blood 7.5 g/dL (6.4-8.2)
[2024-04-23] MEDS ORDERED: Azithromycin 250 MG Tab PO ONE (19:15)
[2024-04-23] MEDS ORDERED: CefTRIAXone Sodium 1,000 MG in NS 100 ML IV ONE (19:15)
[2024-04-23 19:23] LABS: Base Excess Venous 4.4 mmol/L; Bicarbonate Venous 26.5 mmol/L (24.0-30.0); PCO2 Venous 60.3 mmHg (38-42); pH Blood Venous 7.31 (7.34-7.37)
[2024-04-23] MEDS ORDERED: Ipratropium/Albuterol SulF 2.5-0.5MG/3 ML Amp INH SCH (19:40)
[2024-04-23] MEDS ORDERED: Albuterol 2.5 MG/3 ML VIAL INH PRN (19:40)
[2024-04-23] MEDS ORDERED: Acetaminophen 325 MG TABLET PO PRN (19:45)
[2024-04-23] MEDS ORDERED: Ondansetron HCl 2 MG / ML 2ML Vial IV PRN (19:45)
[2024-04-23] MEDS ORDERED: HyDROXyzine HCl 25 MG Tab PO PRN (19:45)
[2024-04-23] MEDS ORDERED: NS 1,000 ML IV SCH (19:45)
[2024-04-23] MEDS ORDERED: LORazepam 2 MG/ML 1ML Injection IV PRN (19:50)
[2024-04-23] MEDS ORDERED: NS 1,000 ML IV ONE (20:00)
[2024-04-23] MEDS ORDERED: HydrOXYzine Pamoate 25 MG Cap PO ONE (20:00)
[2024-04-23] MEDS ORDERED: Metoprolol Tartrate 25 MG Tab PO SCH (21:00)
[2024-04-23] MEDS ORDERED: Pravastatin Sodium 20 MG Tab PO SCH (21:00)
[2024-04-23 22:40] VITALS: BP 132/81
[2024-04-24] MEDS ORDERED: MethylPREDNISolone Sod Succ 125 MG Vial IV SCH
[2024-04-24 00:42] LABS: Influenza A, PCR NEGATIVE (NEGATIVE); Influenza B, PCR NEGATIVE (NEGATIVE); Resp Syncytial Virus, PCR NEGATIVE (NEGATIVE); SARS-Cov-2 (COVID-19) PCR, MMC NEGATIVE (NEGATIVE)
[2024-04-24 00:54] LABS: PCO2 Venous 53.7 mmHg (38-42); pH Blood Venous 7.34 (7.34-7.37)
[2024-04-24 00:55] LABS: Base Excess Venous 2.8 mmol/L; Bicarbonate Venous 25.7 mmol/L (24.0-30.0)
[2024-04-24 03:18] VITALS: BP 123/66
--- NOTE | 2024-04-24 05:57 | NUR ---
2240 Pt arrived on unit from ED via [facility] with RN in attendance and granddaughter wileticia her. Transferred with assist to bed in room PCU12. Oriented to room and unit per unit standards. Admission assessments completed with pt and granddaughter. Pt able to tolerate BiPap for over 6 hours at this time. Pt given 1mg Ativan IVP x 1 to assist pt at the start of BiPap. VSS and pt denies pain, granddaughter remains at bedside. Coral inplace throughout shift per pt request as she reports significant VALDES. Please see full assessment for additional details. No further complaints or concerns at this time, will continue to monitor. 0615 Advance directive book given to granddaughter per request.
[2024-04-24] MEDS ORDERED: Misc. Inhaler INH SCH (07:40)
[2024-04-24 08:10] VITALS: BP 139/69
[2024-04-24 08:46] LABS: PCO2 Venous 55.4 mmHg (38-42); pH Blood Venous 7.31 (7.34-7.37)
[2024-04-24 08:47] LABS: Bicarbonate Venous 25.2 mmol/L (24.0-30.0)
[2024-04-24] MEDS ORDERED: Diltiazem HCl 300 MG Cap.CD PO SCH (09:00)
[2024-04-24] MEDS ORDERED: Citalopram Hydrobromide 20 MG Tab PO SCH (09:00)
[2024-04-24] MEDS ORDERED: Azithromycin 500 MG in NS 250 ML IV SCH (09:00)
[2024-04-24] MEDS ORDERED: Azithromycin 200 MG/5 ML SUSP 5ML UDC PO SCH (09:00)
[2024-04-24] MEDS ORDERED: Enoxaparin 40 MG/0.4 ML SYR SC SCH (09:00)
[2024-04-24 12:15] VITALS: BP 114/64
[2024-04-24 16:36] VITALS: BP 127/71
[2024-04-24 17:09] LABS: Adenovirus Not Detected (NOT DETECT); Bordetella pertussis Not Detected (NOT DETECT); Chlamydophila pneumoniae Not Detected (NOT DETECT); Coronavirus 229E Not Detected (NOT DETECT); Coronavirus HKU1 Not Detected (NOT DETECT); Coronavirus NL63 Not Detected (NOT DETECT); Coronavirus OC43 Not Detected (NOT DETECT); Human Metapneumovirus Not Detected (NOT DETECT); Human Rhinovirus/Enterovirus Not Detected (NOT DETECT); Influenza A/2009-H1 Not Detected (NOT DETECT); Influenza A/H1 Not Detected (NOT DETECT); Influenza A/H3 Not Detected (NOT DETECT); Influenza B Not Detected (NOT DETECT); Mycoplasma pneumoniae Not Detected (NOT DETECT); Parainfluenza Virus 1 Not Detected (NOT DETECT); Parainfluenza Virus 2 Not Detected (NOT DETECT); Parainfluenza Virus 3 Not Detected (NOT DETECT); Parainfluenza Virus 4 Not Detected (NOT DETECT); Respiratory Syncytial Virus Not Detected (NOT DETECT); SARS-Cov-2 (COVID-19), BioFire Not Detected (NOT DETECT)
[2024-04-24 18:31] LABS: Source, Urine Clean Catch
--- NOTE | 2024-04-24 18:48 | NUR ---
End of shift note. Pt has been resting for much of the day. Pt has been OOB to the BS but becomes very tachypneic with any type of movement. Pt required a significant amount of time to recover from the movement. Periwick is currently in place to help with energy conservation. Pt has been agreeable to wearing the BiPAP at times of rest. Viral panel was negative. UA was sent this afternoon as well, results pending. Pt might benefit from a swallow eval. Pt has had no issues swallowing today but reports that her coughing event prior to admission was related to swallowing food. Family reported that she has a history of coughing at times while eating. Granddaughter has been at bedside all shift. Pt is able to make needs known, call light is within reach.
[2024-04-24 18:52] LABS: Appearance, Urine Clear (Clear); Bilirubin, Urine Neg (Neg); Blood, Urine Neg (Neg); Color, Urine Yellow (P-Yellow); Glucose Qualitative, Urine Neg (Neg); Ketones, Urine Neg (Neg); Leukocyte Esterase, Urine Neg (Neg); Nitrite, Urine Neg (Neg); Protein, Urine Neg (Neg); Specific Gravity, Urine 1.015 (1.003-1.022); Urobilinogen, Urine NORM (Normal)
[2024-04-24 20:42] VITALS: BP 116/52
--- NOTE | 2024-04-24 21:54 | NUR ---
PATIENT RECEIVING BREATHING TREATMENT WITH WHEEZES NOTED THROUGHUT RT. LUNG MILLS. 02 REMAINS AT 5L BUT MONITORING AND WILL DECREASE NEEDED. SLOWLY 02 DECREASED TO 2 L WITH O2 SAT 95-98%. MEDICATED WITH ATIVAN FOR SLEEP AND MONITORING O2 SAT. WILL REEVAULATED NEEDED.
[2024-04-24 23:18] VITALS: BP 126/68
[2024-04-25 00:05] VITALS: BP 118/56
[2024-04-25 03:50] VITALS: BP 128/61
--- NOTE | 2024-04-25 03:58 | NUR ---
PATIENT WITH BIPAP STANDBY, BUT CURRENTLY ON NASAL CANNULA. USUALLY AT HOME 2-4l, CURRENTY ON 5L AND SLOWLY WEANING TO 3L. MEDICATED WITH ATIVAN 1MG AND PATIENT SLEEPING WELL, PLACED ON BIPAP AND WEARING IT UNTIL 0230. REFUSING TO WEAR BIPAP FURTHER. PLACED BACK ON NASAL CAMMULA.
[2024-04-25 04:02] LABS: BASOPHILS PERCENT AUTO 0 % (0-2); EOSINOPHILS PERCENT AUTO 0 % (0-6); Hematocrit 33.9 % (33.0-51.0); Hemoglobin 10.8 g/dL (11.5-16.0); IMMATURE GRAN ABSOLUTE AUTO 0.04 K/mm3 (0.00-0.10); IMMATURE GRAN PERCENT AUTO 0 % (0-1); LYMPHOCYTES ABSOLUTE AUTO 0.47 K/mm3 (0.84-5.20); LYMPHOCYTES PERCENT AUTO 5 % (21-46); MONOCYTES ABSOLUTE AUTO 0.28 K/mm3 (0.16-1.47); MONOCYTES PERCENT AUTO 3 % (4-13); Mean Corpuscular HGB 29.8 pg (26.0-34.0); Mean Corpuscular HGB Conc 31.9 g/dL (31.5-36.5); Mean Corpuscular Volume 93 fL (80-100); Mean Platelet Volume 9.4 fL (9.1-12.4); NEUTROPHILS ABSOLUTE AUTO 8.54 K/mm3 (1.96-9.15); NEUTROPHILS PERCENT AUTO 92 % (41-73); Platelet Count 235 K/mm3 (150-400); RDW Coefficient Variation 13.1 % (11.7-14.2); RDW Standard Deviation 45.1 fL (35.1-46.3); Red Blood Cell Count 3.63 M/mm3 (3.80-5.20); White Blood Cell Count 9.33 K/mm3 (4.00-11.30)
[2024-04-25 05:54] LABS: Albumin/Globulin Ratio 0.9 (0.8-1.8); Bilirubin, Total 0.3 mg/dL (0.1-1.0); Bun/Creatinine Ratio 42.9 (12.0-20.0); Calcium, Blood 8.7 mg/dL (8.5-10.1); Creatinine, Blood 0.47 mg/dL (0.40-1.00); Globulin, Blood 3.2 g/dL (2.2-4.0); Magnesium, Blood 2.3 mg/dL (1.6-2.4); Phosphorus, Blood 2.6 mg/dL (2.5-4.9); Potassium, Blood 4.3 mmol/L (3.5-5.5); Total Protein, Blood 6.2 g/dL (6.4-8.2)
[2024-04-25 08:08] VITALS: BP 126/63
[2024-04-25] MEDS ORDERED: MethylPREDNISolone Sod Succ 125 MG Vial IV SCH (09:00)
[2024-04-25] MEDS ORDERED: Diltiazem HCl 300 MG Cap.CD PO SCH (09:50)
--- NOTE | 2024-04-25 13:12 | NUR ---
ASSUMED CARE OF PT AT 0700 THIS AM. PT IS RESTING QUIETLY IN BED WITH GRAND DAUGHTER/CAREGIVER AT BEDSIDE. PT IS AWAKE/ALERT ORIENTED X 4. SEE DOCUMENTED VS AND ASSESSMENT. DR HERNANDEZ CONTACTED ABOUT PT'S DILTIAZEM THAT IS NOT IN [facility]. NEW ORDERS PLACED. PT ON 3L O2 VIA NC THIS AM, TITRATED DOWN TO 2L. DR HERNANDEZ ROUNDED AND PT IS MADE MEDICAL NO TELE STATUS. NO ACUTE CHANGES SO FAR THIS SHIFT. PT IS CURRENTLY RESTING IN BED WITH FAMILY AT BEDSIDE, ABLE TO USE CALL LIGHT FOR NEEDS. BED IN LOWEST, LOCKED POSITION. CALL LIGHT IN REACH, WILL CONTINUE TO MONITOR.
[2024-04-25 16:26] VITALS: BP 143/52
--- NOTE | 2024-04-25 17:36 | NUR ---
NO ACUTE CHANGES T/O THE SHIFT. PT HAS ONLY COMPLAINED HEADACHE PAIN TO THE MIDDLE OF HER FORHEAD, ONGOING, MEDICATED WITH APAP WITH GOOD RESULT. VSS T/O THE DAY, 02 TITRATED DOWN TO 1L SPO2 93% AT THIS TIME. FAMILY AT BEDSIDE T/O THE DAY. PT IS HOPEFUL TO BE DISCHARGED HOME SOON. PT HAS CALL LIGHT IN REACH AND IS ABLE TO MAKE HER NEEDS KNOWN. BED IN LOWEST, LOCKED POSITION. WILL CONTINUE TO MONITOR AND GIVE REPORT TO IMANI RN AT THE END OF MY SHIFT.
[2024-04-25 20:00] VITALS: BP 142/58
--- NOTE | 2024-04-25 21:52 | NUR ---
ASSUMED CARE OF PATIENT AT 1900. PT IS ALERT AND ORIENTED. LAYING IN BED WITH FAMILY IN ROOM. PT IS ON 1L NC AND RR TACHYPNIC AT 24 AT MINIMUM. PT HAS CLEAR UPPER LOBES BILAT AND VERY DIMINISHED LUNG SOUNDS BILA LOWER. PT HAD JUST FINISHED A BREATHING TX. PT HAS HER GLASSES ON HER FACE. PT HAS PURWICK IN PLACE WITH CLEAR YELLOW URINE OUT FROM IT. DUMPED 700CC. PT HAS ONE PIV TO RIGHT AC. IS TIS FLUSHED AND DOES NOT GIVE BLOOD BACK FROM IT, REMAINS SALINE LOCKED. PT VS STABLE AND SHE IS AFEBRILE. PULSE IS TACHY AT 105 AND BP 142/58 MAP 80. RR 24 SAO2 BETWEEN 92-95% ON THE 1 L/NC. PT MAEW AND HAS MILD EDEMA TO LE BILAT AT ANKLES. RT REMOVED RESCUE BIPAP MACHINE SINCE SHE IS NO LONGER NEEDING IT AND DOES NOT HAVE A BIPAP AT HOME. WILL CONTINUE CARE DIRECTED.
[2024-04-26 04:01] LABS: Hematocrit 35.9 % (33.0-51.0); Hemoglobin 11.1 g/dL (11.5-16.0); Mean Corpuscular HGB Conc 30.9 g/dL (31.5-36.5); Mean Corpuscular Volume 94 fL (80-100); Mean Platelet Volume 9.3 fL (9.1-12.4); Platelet Count 249 K/mm3 (150-400); RDW Coefficient Variation 13.2 % (11.7-14.2); RDW Standard Deviation 45.6 fL (35.1-46.3); Red Blood Cell Count 3.83 M/mm3 (3.80-5.20); White Blood Cell Count 9.15 K/mm3 (4.00-11.30)
[2024-04-26 04:06] VITALS: BP 142/56
[2024-04-26 04:24] LABS: Bun/Creatinine Ratio 41.9 (12.0-20.0); Calcium, Blood 8.8 mg/dL (8.5-10.1); Creatinine, Blood 0.41 mg/dL (0.40-1.00); Magnesium, Blood 2.5 mg/dL (1.6-2.4); Potassium, Blood 4.1 mmol/L (3.5-5.5)
--- NOTE | 2024-04-26 05:43 | NUR ---
END OF SHIFT NOTE FRANCISCO HAS RESTED WELL TONIGHT. SHE HAS REMAINED ON 1 L / NC AND OXYGENATION WAS APROX. 95% ALL NIGHT. PT WAS SEEN BY RT WHO GAVE BREATHING TX'S. SHE DID NOT USE BIPAP TONIGHT. SHE HAS USED THE PURWICK OVER NIGHT AND HAS VOIDED EASILY 1200ML. IV IS SALINE LOCKED. PT HAS GRANDDAUGHTER IN ROOM WITH HER OVER NIGHT. NO NEW ACUTE CONCERNS AT THIS TIME. VS REMAINED STABLE.
[2024-04-26 07:47] VITALS: BP 145/73
[2024-04-26] MEDS ORDERED: Diltiazem HCl 300 MG Cap.CD PO SCH (09:00)
[2024-04-26] MEDS ORDERED: Benzonatate 100 MG Cap PO PRN (09:00)
[2024-04-26] MEDS ORDERED: BENZ100A PO (12:19)
[2024-04-26] MEDS ORDERED: ROBITUSSIN HON237 ML PO (12:21)
[2024-04-26] MEDS ORDERED: PRED20 PO (12:24)
[2024-04-26] MEDS ORDERED: CEPH500 PO (12:24)
--- NOTE | 2024-04-26 14:27 | NUR ---
PT DISCHARGE TO HOME WITH DISCHARGE ORDERS AND HOME HEALTH. PT REMAINED ON 2-3L OF O2 T/O SHIFT, SOB WITH EXERTION. PT ABLE TO AMBULATE TO WHEELCHAIR WITH SOME TIME TO RECOVER. SATS KEPT ABOVE 90%, HRR SR 60-70'S, SBP 140'S, AFEBRILE. ALL NEW MEDICATIONS AND DISCHARGE INSTRUCTIONS DISCLOSED WITH PT AND GRANDAUGHTER AND SON AT THE BEDSIDE. PRESCRIPTIONS SENT TO [facility]. ALL BELONGINGS SENT WITH THE PT, ACCOMPANIED VIA WHEELCHAIR FOR TRANSPORT
== END 2024-04-26 13:32 | disposition home health service (06) | DRG 189 ==
LOC: ER 15:15 → PCU 19:43 → ERHOLD 19:43 → ER 19:43 → PCU 04-26 13:32
PROVIDERS: Emergency Medicine; Hospitalist; Nurse Practitioner Acute Care; Student in an Organized Health Care Education/Training Program; ADMIT Internal Medicine
DX: J96.21 Acute and chronic respiratory failure with hypoxia (principal); J44.1 Chronic obstructive pulmonary disease with (acute) exacerbation; E87.29 Other acidosis; I47.10 Supraventricular tachycardia, unspecified; Z99.81 Dependence on supplemental oxygen; J96.22 Acute and chronic respiratory failure with hypercapnia; F41.1 Generalized anxiety disorder; E78.5 Hyperlipidemia, unspecified; Z79.899 Other long term (current) drug therapy; Z88.8 Allergy status to other drugs, medicaments and biological substances; Z87.891 Personal history of nicotine dependence
CPT/HCPCS: 0202U; 0241U; 36415; 71046; 71260; 80048; 80053; 81003; 82803; 83735; 83880; 84100; 84484; 85025; 85027; 93005; 93010; 94640; 94644; 94660; 94664; 94762; 96365-59; 96375-59; 99285-25; A9270; J0456; J0696; J1650; J2060; J2919; J3475; J7030; J7050; Q9967

== ENCOUNTER 2024-08-26 09:58 | Emergency (ER) | payer MEDICARE, OTHER ==
[~2024-08-26] VITALS: Ht 157.5 cm; Wt 72.6 kg
[~2024-08-26 09:58] MED LIST changes: +BENZ100A PO; +CITALOPRAM HBR20 M9 PO; +Hydroxyzine HCl50 MG PO; +PRAVASTATIN SOD40 MG PO; +ROBITUSSIN HON237 ML PO; +VITAMIN D5000 UNIT PO
[2024-08-26 10:26] VITALS: BP 152/69
[2024-08-26] MEDS ORDERED: Diphth,Pertuss(Acell),Tet Vac 0.5 ML VIAL IM ONE (12:35)
[2024-08-26] MEDS ORDERED: HYDR1TAB94 PO (12:38)
== END 2024-08-26 12:58 | disposition home or self-care (01) ==
LOC: ER 09:58
DX: S09.90XA Unspecified injury of head, initial encounter (principal); S51.812A Laceration without foreign body of left forearm, initial encounter; S93.402A Sprain of unspecified ligament of left ankle, initial encounter; W18.30XA Fall on same level, unspecified, initial encounter; J44.89 Other specified chronic obstructive pulmonary disease; E78.5 Hyperlipidemia, unspecified; Z88.5 Allergy status to narcotic agent; Z79.899 Other long term (current) drug therapy; Z79.52 Long term (current) use of systemic steroids
CPT/HCPCS: 70450; 73610; 90471; 90715; 99284-25

== ENCOUNTER 2025-07-02 17:05 | Observation (INO) | payer MEDICARE, OTHER ==
[~2025-07-02] VITALS: Ht 162.6 cm; Wt 74.8 kg
[~2025-07-02 17:05] MED LIST changes: +HYDR1TAB94 PO
[2025-07-02] MEDS ORDERED: Magnesium Sulf 2 GM/Water 50ML 50 ML IV ONE (17:15)
[2025-07-02] MEDS ORDERED: Metoclopramide HCl 5MG / ML 2ML Vial IV ONE (17:15)
[2025-07-02] MEDS ORDERED: Albuterol 2.5 MG/3 ML VIAL INH SCH (17:15)
[2025-07-02] MEDS ORDERED: DiphenhydrAMINE HCl 50 MG/ML 1ML Vial IV ONE (17:15)
[2025-07-02 17:40] LABS: BASOPHILS ABSOLUTE AUTO 0.06 K/mm3 (0.00-0.23); BASOPHILS PERCENT AUTO 1 % (0-2); EOSINOPHILS ABSOLUTE AUTO 0.16 K/mm3 (0.00-0.68); EOSINOPHILS PERCENT AUTO 1 % (0-6); Hematocrit 42.3 % (33.0-51.0); Hemoglobin 13.4 g/dL (11.5-16.0); IMMATURE GRAN ABSOLUTE AUTO 0.03 K/mm3 (0.00-0.10); IMMATURE GRAN PERCENT AUTO 0 % (0-1); LYMPHOCYTES ABSOLUTE AUTO 3.49 K/mm3 (0.84-5.20); LYMPHOCYTES PERCENT AUTO 30 % (21-46); MONOCYTES ABSOLUTE AUTO 0.77 K/mm3 (0.16-1.47); MONOCYTES PERCENT AUTO 7 % (4-13); Mean Corpuscular HGB Conc 31.7 g/dL (31.5-36.5); Mean Corpuscular Volume 95 fL (80-100); NEUTROPHILS ABSOLUTE AUTO 7.28 K/mm3 (1.96-9.15); NEUTROPHILS PERCENT AUTO 62 % (41-73); NRBC ABSOLUTE 0.00 K/mm3 (0.00-0.02); NRBC Auto 0.0 /100 WBC (0.0-0.2); Platelet Count 298 K/mm3 (150-400); RDW Coefficient Variation 12.6 % (11.7-14.2); RDW Standard Deviation 43.7 fL (35.1-46.3)
[2025-07-02 17:57] LABS: pH Blood Venous 7.43 (7.34-7.37)
[2025-07-02 18:04] LABS: Anion Gap 8.0 mmol/L (3-11); Blood Urea Nitrogen 18.0 mg/dL (8-24); CO2, Blood 30.0 mmol/L (21-32); Calcium, Blood 9.1 mg/dL (8.5-10.1); Chloride, Blood 106.0 mmol/L (98-108); Creatinine, Blood 0.52 mg/dL (0.40-1.00); Glucose, Blood 126.0 mg/dL (70-99); Potassium, Blood 4.6 mmol/L (3.5-5.5); Sodium, Blood 139.0 mmol/L (136-145)
[2025-07-02 18:43] LABS: Influenza A, PCR NEGATIVE (NEGATIVE); Influenza B, PCR NEGATIVE (NEGATIVE); Resp Syncytial Virus, PCR NEGATIVE (NEGATIVE); SARS-Cov-2 (COVID-19) PCR, MMC NEGATIVE (NEGATIVE)
[2025-07-02] MEDS ORDERED: Doxycycline Hyclate 100 MG in Dextrose 5% 250 ML IV ONE (20:25)
[2025-07-02] MEDS ORDERED: CefTRIAXone Sodium 1,000 MG in NS 100 ML IV ONE (20:25)
[2025-07-02] MEDS ORDERED: Albuterol 2.5 MG/3 ML VIAL INH PRN (21:45)
[2025-07-02] MEDS ORDERED: Ipratropium/Albuterol SulF 2.5-0.5MG/3 ML Amp INH SCH (21:50)
[2025-07-02] MEDS ORDERED: FLU VACC TS2025(65UP)/MF59C/PF 45 MCG/0.5 ML SYRINGE IM SCH (21:55)
[2025-07-02 22:57] VITALS: BP 152/71
[2025-07-03 04:29] VITALS: BP 140/68
--- NOTE | 2025-07-03 06:42 | NUR ---
PT MONITORING DURING THE SHIFT,PT TOLERATED THE BIPAP WELL.MAINTAINED OXYGEN SATURATION >92 %.PT SLEEPING AT THIS TIME,GRAND-DAUGHTER AT BEDSIDE.PT EASILY AROUSABLE.PT DENIES PAIN,DENIES SOB AT REST,DENIES NEEDS.CALL LIGHT AND PT'S ITEMS WITHIN REACH.MONITORING ONGOING PER CAREPLAN.
[2025-07-03 07:23] VITALS: BP 131/67
[2025-07-03] MEDS ORDERED: Enoxaparin 40 MG/0.4 ML SYR SC SCH (09:00)
[2025-07-03 11:40] LABS: BASOPHILS ABSOLUTE AUTO 0.01 K/mm3 (0.00-0.23); BASOPHILS PERCENT AUTO 0 % (0-2); EOSINOPHILS ABSOLUTE AUTO 0.00 K/mm3 (0.00-0.68); EOSINOPHILS PERCENT AUTO 0 % (0-6); Hematocrit 39.0 % (33.0-51.0); Hemoglobin 12.4 g/dL (11.5-16.0); IMMATURE GRAN ABSOLUTE AUTO 0.03 K/mm3 (0.00-0.10); IMMATURE GRAN PERCENT AUTO 0 % (0-1); LYMPHOCYTES ABSOLUTE AUTO 0.74 K/mm3 (0.84-5.20); LYMPHOCYTES PERCENT AUTO 10 % (21-46); MONOCYTES ABSOLUTE AUTO 0.08 K/mm3 (0.16-1.47); MONOCYTES PERCENT AUTO 1 % (4-13); Mean Corpuscular HGB Conc 31.8 g/dL (31.5-36.5); Mean Corpuscular Volume 93 fL (80-100); NEUTROPHILS ABSOLUTE AUTO 6.90 K/mm3 (1.96-9.15); NEUTROPHILS PERCENT AUTO 89 % (41-73); NRBC ABSOLUTE 0.00 K/mm3 (0.00-0.02); NRBC Auto 0.0 /100 WBC (0.0-0.2); Platelet Count 271 K/mm3 (150-400); RDW Coefficient Variation 12.7 % (11.7-14.2); RDW Standard Deviation 43.4 fL (35.1-46.3)
[2025-07-03 11:53] LABS: Alanine Aminotransfer (ALT/SGP 16.0 U/L (12-78); Albumin, Blood 3.2 g/dL (3.4-5.0); Albumin/Globulin Ratio 0.9 (0.8-1.8); Anion Gap 8.0 mmol/L (3-11); Aspartate Aminotrans (AST/SGOT 17.0 U/L (12-37); Bilirubin, Total 0.2 mg/dL (0.1-1.0); Blood Urea Nitrogen 15.0 mg/dL (8-24); CO2, Blood 28.0 mmol/L (21-32); Calcium, Blood 8.7 mg/dL (8.5-10.1); Chloride, Blood 105.0 mmol/L (98-108); Creatinine, Blood 0.5 mg/dL (0.40-1.00); Globulin, Blood 3.7 g/dL (2.2-4.0); Glucose, Blood 167.0 mg/dL (70-99); Potassium, Blood 4.4 mmol/L (3.5-5.5); Sodium, Blood 137.0 mmol/L (136-145); Total Protein, Blood 6.9 g/dL (6.4-8.2)
[2025-07-03] MEDS ORDERED: Diltiazem HCl 300 MG Cap.CD PO SCH (12:00)
[2025-07-03 12:18] VITALS: BP 142/65
[2025-07-03 15:40] VITALS: BP 111/56
--- NOTE | 2025-07-03 18:24 | NUR ---
End of Shift Pt A&O x4. VSS. Pt on bipap upon care assumption, transitioned to 2L NC this morning w/ pt tolerating well. Pt reports 2L NC home use during the day & bipap at night. Monitor showing SR, HR 60s-90s w/ increase to 140s w/ ambulation to bathroom. Pt then encouraged to use BSC d/t elevated HR w/ ambulating to bathroom & breathing becoming more labored. Pt requiring increase in NC to 3L when ambulating to bathroom for spo2 > 92%. Pt denying CP or discomfort this shift. MD Munson to bedside informing pt of plan to continue to trend troponins. Pt understanding, hoping to discharge home tomorrow.
[2025-07-03 20:21] VITALS: BP 129/67
[2025-07-03 23:50] VITALS: BP 134/60
[2025-07-04 04:20] VITALS: BP 131/67
[2025-07-04 04:41] LABS: BASOPHILS ABSOLUTE AUTO 0.01 K/mm3 (0.00-0.23); BASOPHILS PERCENT AUTO 0 % (0-2); EOSINOPHILS ABSOLUTE AUTO 0.00 K/mm3 (0.00-0.68); EOSINOPHILS PERCENT AUTO 0 % (0-6); Hematocrit 37.2 % (33.0-51.0); Hemoglobin 11.7 g/dL (11.5-16.0); IMMATURE GRAN ABSOLUTE AUTO 0.05 K/mm3 (0.00-0.10); IMMATURE GRAN PERCENT AUTO 0 % (0-1); LYMPHOCYTES ABSOLUTE AUTO 0.68 K/mm3 (0.84-5.20); LYMPHOCYTES PERCENT AUTO 6 % (21-46); MONOCYTES ABSOLUTE AUTO 0.24 K/mm3 (0.16-1.47); MONOCYTES PERCENT AUTO 2 % (4-13); Mean Corpuscular HGB Conc 31.5 g/dL (31.5-36.5); Mean Corpuscular Volume 94 fL (80-100); NEUTROPHILS ABSOLUTE AUTO 10.26 K/mm3 (1.96-9.15); NEUTROPHILS PERCENT AUTO 91 % (41-73); NRBC ABSOLUTE 0.00 K/mm3 (0.00-0.02); NRBC Auto 0.0 /100 WBC (0.0-0.2); Platelet Count 269 K/mm3 (150-400); RDW Coefficient Variation 12.7 % (11.7-14.2); RDW Standard Deviation 44.1 fL (35.1-46.3)
--- NOTE | 2025-07-04 05:41 | NUR ---
SHIFT SUMMARY PT IS A&O X 4, ABLE TO MAKE NEEDS KNOWN, MOVING ALL EXTREMITIES WITH PURPOSE, OBEYS COMMANDS, REPOSITIONING SELF IN BED, SBA TO BRP, CALLS APPROPRIATELY. CONTINUOUS SPO2, SPO2 GREATER 92% ON BASELINE 2L O2 VIA NC OR BIPA WITH 2L O2 BLEED IN, PT DENIES SOB WHILE AT REST, REPORTS SOB WITH ACTIVITY. CONTINUOUS TELE MONITORING, SINUS 60-70 S, PULSES PRESENT T/O, BP STABLE WITH MAP GREATER THAN 65. BOWEL TONES PRESENT IN ALL 4Q, PT DENIES FEELINGS OF NAUSEA OR CONSTIPATION OR PAIN. PT INCONTINENT OF URINE AT TIMES USING SANITARY PADS. BED LOWEST POSITION, CALL LIGHT IN REACH, AWAITING TO GIVE REPORT TO ONCOMING RN.
[2025-07-04 05:43] LABS: Anion Gap 6.0 mmol/L (3-11); Blood Urea Nitrogen 22.0 mg/dL (8-24); CO2, Blood 31.0 mmol/L (21-32); Calcium, Blood 8.9 mg/dL (8.5-10.1); Chloride, Blood 106.0 mmol/L (98-108); Creatinine, Blood 0.52 mg/dL (0.40-1.00); Glucose, Blood 187.0 mg/dL (70-99); Magnesium, Blood 2.8 mg/dL (1.6-2.4); Potassium, Blood 4.2 mmol/L (3.5-5.5); Sodium, Blood 139.0 mmol/L (136-145)
[2025-07-04 07:29] VITALS: BP 163/61
[2025-07-04] MEDS ORDERED: Misc. Inhaler INH SCH ×2 (09:00)
--- NOTE | 2025-07-04 10:51 | NUR ---
PIV INFILTRATION LAC IV INFILRATED WHILE INFUSING AZITHROMYCIN, IV STOPPED AND REMOVED. PT REPORTS ARM FEELS HOT LOCALIZED TO THE PRIOR IV SITE, ICE PROVIDE, TYLENOL GIVEN PER [facility]. UPON REASSESSMENT SHE STATES SIGNIFICANT IMPROVEMENT AND THERE WAS A REDUCTION IN REDNESS AT THE SITE.
[2025-07-04] MEDS ORDERED: AZIT500 PO (11:53)
[2025-07-04] MEDS ORDERED: PRED20 PO (11:53)
--- NOTE | 2025-07-04 17:24 | NUR ---
DISCHARGE SUMMARY COPD EXACERBATION ADMIT, PT ON HOME O2 T/O THE SHIFT, REPORTS SOME SOB BT NOTHING MORE THAN WHAT HER HOME BASELINE IS WITH ACTIVITY. DISCUSSED DISCHARGE INSTRUCTIONS INCLUDING HOME CARE INSTRUCTIONS, MEDICATIONS, AND FOLLOW UP APPOINMENT. NO QUESTIONS AT TIME OF DISCHARGE, ESCORTED OUT VIA WC TO PRIVATE AUTO TO GO HOME WITH HER GRANDDAUGHTER.
== END 2025-07-04 15:53 | disposition home or self-care (01) ==
LOC: ER 17:05 → PCU 17:06
PROVIDERS: Emergency Medicine; Student in an Organized Health Care Education/Training Program; ADMIT Internal Medicine
DX: J44.1 Chronic obstructive pulmonary disease with (acute) exacerbation (principal); J96.21 Acute and chronic respiratory failure with hypoxia; I47.10 Supraventricular tachycardia, unspecified; E78.5 Hyperlipidemia, unspecified; E04.2 Nontoxic multinodular goiter; F41.1 Generalized anxiety disorder; Z99.81 Dependence on supplemental oxygen; Z87.891 Personal history of nicotine dependence; Z79.899 Other long term (current) drug therapy; Z88.5 Allergy status to narcotic agent
CPT/HCPCS: 36415; 71045; 71260; 80048; 80053; 82803; 83735; 84484; 85025; 85379; 87637; 93005; 93010; 94640; 94644; 94660; 94664; 94762; 96365-59; 96367; 96368; 96372; 96375; 96375-59; 96376; 99285-25; A9270; G0378; J0456; J0696; J1200; J1650; J2765; J2919; J3475; J7050; J7060; Q9967